=== PATIENT | female | born 1990 | race Caucasian/White ===

== ENCOUNTER 2016-11-22 05:46 | Emergency (ER) | payer OTHER ==
[~2016-11-22] VITALS: Ht 157.5 cm; Wt 78.5 kg
[~2016-11-22 05:46] MED LIST: ADDERALL20 MG; CIPRO 500MG TA500 MG PO; CIPROFLOXACIN500 MG PO; ENDOCET 325 MG-1 TA1 PO; IBU-8800 MG PO; IBUPROFEN600 M1 PO; IBUPROFEN800 M1 PO; LEVSIN-SL0.125 MG SL; MOTRIN800 MG PO; OXYCODONE5 M1 PO; PEPCID20 M1 PO; PERCOCET 325 MG1 TA2 PO; PERCOCET 5-3251 EACH PO; PHENERGAN25 M1 PO; PRILOSEC OTC20 M1 PO; PRILOSEC40 MG PO; PROTONIX40 M3 PO; PYRIDIUM200 MG PO; REGLAN10 M1 PO; REGLAN10 MG PO; TAMIFLU 75MG75 MG PO; TRAMADOL50 MG PO; VIBRAMYCIN100 MG PO; VICODIN 300 MG-1 TAB PO; VICODIN 5-3001 EACH PO; ZOFRAN 4 MG TABL4 MG PO; ZOFRAN 4MG ORALL4 MG PO; ZOFRAN ODT4 M1 PO; ZOFRAN ODT4 M1 SL; ZOFRAN ODT4 MG PO; ZOFRAN4 M1 PO; [UNRECOGNIZED DRUG - REMARK]
--- NOTE | 2016-11-22 06:13 | ED GI/GU/ABDOMINAL COMPLAINT ---
History of Present Illness General Chief Complaint: Nausea, Vomiting, Diarrhea Stated Complaint: ABD PAIN,VOMITING Source: patient Exam Limitations: no limitations Vital Signs & Intake/Output Vital Signs & Intake/Output Vital Signs Date Time Temp Pulse Resp B/P B/P Pulse O2 O2 Flow FiO2 Mean Ox Delivery Rate 11/22 621 Room Air 11/22 617 96.8 101 18 135/79 98 Room Air Allergies Coded Allergies: azithromycin (From ZITHROMAX) (DIARRHEA 05/23/16) Uncoded Allergies: ETOH (Intermediate, VOMITTING, DIARRHEA 05/23/16) Triage Nurses Notes Reviewed? yes ? n Is pt currently ? No Onset: Abrupt Duration: hour(s): Timing: recent history Quality/Severity: burning Location: epigastric Radiation: no radiation Activities at Onset: none Prior Abdominal Problems: similar symptoms Modifying Factors: Worsens With: palpation, vomiting. Associated Symptoms: abdominal pain, nausea/vomiting HPI: 26 yo woman h/o pancreatitis, "but it wasn't from drinking" presents with mid epigastric pain, nausea, and vomiting during the night after drinking 2 shots of tequila at dinner last night. she has no diarrhea, fever, chills, vaginal dishcharge, dysuria. (GERARDO MOULTON,ELIS Streeter) Reconcile Medications Doxycycline Hyclate (Vibramycin) 100 MG CAPSULE 1 CAP PO BID INFN Ibuprofen 800 MG TABLET 1 TAB PO TID PRN PAIN Ibuprofen 600 MG TABLET 1 TAB PO TID PRN PAIN with food Omeprazole 20 MG TABLET. 1 TAB PO DAILY STOMACH UPSET Omeprazole Magnesium (Prilosec Otc) 20 MG TABLET. 1 TAB PO DAILY GASTRITIS Ondansetron (Zofran Odt) 4 MG TAB.RAPDIS 1 TAB PO Q6 PRN NAUSEA Ondansetron (Zofran Odt) 4 MG TAB.RAPDIS 1 TAB SL TID PRN NAUSEA Ondansetron (Zofran Odt) 4 MG TAB.RAPDIS 1 TAB SL TID PRN NAUSEA Oxycodone HCl/Acetaminophen (Percocet 5-325 MG Tablet) 5 MG-325 MG TABLET 1 TAB PO BID BREAKTHROUGH PAIN Oxycodone HCl/Acetaminophen (Percocet 5-325 MG Tablet) 5 MG-325 MG TABLET 1-2 TAB PO Q6P PRN PAIN Pantoprazole Sodium (Protonix) 40 MG TABLET. 1 TAB PO DAILY GERD [UNKNOWN SEIZURE MED] SEIZURES (Reported) (DAVID OCHOA MD) Past History Medical History Any Pertinent Medical History? 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 No (GERARDO MOULTON,ELIS Streeter) Review of Systems Review of Systems Constitutional: Reports: no symptoms. EENTM: Reports: no symptoms. Respiratory: Reports: no symptoms. Cardiovascular: Reports: no symptoms. GI: Reports: no symptoms. Genitourinary: Reports: no symptoms. Musculoskeletal: Reports: no symptoms. Skin: Reports: no symptoms. Neurological/Psychological: Reports: no symptoms. Hematologic/Endocrine: Reports: no symptoms. Immunologic/Allergic: Reports: no symptoms. All Other Systems: Reviewed and Negative (ELIS PHAM MD) Physical Exam Physical Exam General Appearance: well developed/nourished, mild distress Head: atraumatic, normal appearance Eyes: Bilateral: normal appearance. Ears, Nose, Throat, Mouth: hearing grossly normal Neck: normal inspection, supple, full range of motion, normal alignment Respiratory: normal breath sounds, chest non-tender, no respiratory distress, quiet respiration, lungs clear Cardiovascular: regular rate/rhythm Gastrointestinal: normal bowel sounds, soft, mid epigastric tenderness to palpation. no rebound. no guarding. Back: normal inspection Extremities: normal range of motion Neurologic/Psych: no motor/sensory deficits, awake, alert, oriented x 3 Skin: intact, normal color, warm/dry Core Measures ACS in differential dx? No Severe Sepsis Present: No Septic Shock Present: No (ELIS PHAM MD) Progress Differential Diagnosis: pancreatitis vs reflux vs gastroenteritis vs other. Plan of Care: Orders Procedure Date/time Status Add-on Test (ER Only) 11/23 627 Active ETHANOL 11/23 615 Complete LIPASE 11/22 599 Complete HEPATIC FUNCTION PANEL 11/22 599 Complete HUMAN BETA HCG SCREEN 11/22 599 Complete CBC WITHOUT DIFFERENTIAL 11/22 599 Complete BASIC METABOLIC PANEL 11/22 599 Complete AMYLASE 05/06 0600 Complete Laboratory Tests 11/22/16 0616: Anion Gap 14, Estimated GFR > 60, BUN/Creatinine Ratio 8.8, Glucose 129 H, Calcium 9.0, Total Bilirubin 0.4, Direct Bilirubin 0.3, AST 35, ALT 63 H, Alkaline Phosphatase 95, Total Protein 7.7, Albumin 4.7, Amylase 105, Lipase 171 , Total Beta HCG NEGATIVE, CBC w Diff NO MAN DIFF REQ, RBC 4.97, MCV 89.7, MCH 30.2, RDW 13.5, MPV 8.2, Gran % 63.0, Lymphocytes % 31.6, Monocytes % 4.6, Eosinophils % 0.5, Basophils % 0.3, Absolute Granulocytes 6.1, Absolute Lymphocytes 3.0, Absolute Monocytes 0.4, Absolute Eosinophils 0, Absolute Basophils 0, PUBS MCHC 33.7, Serum Alcohol 63.0 11/22/16 0600: Urine Color Cancelled, Urine Clarity Cancelled, Urine pH Cancelled, Ur Specific [place] Cancelled, Urine Protein Cancelled, Urine Ketones Cancelled, Urine Nitrite Cancelled, Urine Bilirubin Cancelled, Urine Urobilinogen Cancelled, Ur Leukocyte Esterase Cancelled, Ur Microscopic Cancelled, Urine Hemoglobin Cancelled, Urine Glucose Cancelled Initial ED EKG: none Hand-Off Endorsed To: DAVID OCHOA MD Endorsed Time: 0700 Pending: labs (GERARDO MOULTON,ELIS Streeter) Comments: Discharged by Dr. Pham (DAVID OCHOA MD) Departure Departure Condition: Stable Clinical Impression Primary Impression: Abdominal pain Referrals: DEVENDRA ROBBINS APRN (PCP/Family) Departure Forms: Customer Survey General Discharge Information (GERARDO MOULTON,ELIS Streeter) Departure Disposition: HOME OR SELF CARE Prescriptions: Current Visit Scripts Ondansetron (Zofran Odt) 1 TAB SL TID PRN NAUSEA #10 TAB Omeprazole 1 TAB PO DAILY #30 TAB (DAVID OCHOA MD)
[2016-11-22 06:18] VITALS: BP 135/79
[2016-11-22 06:35] LABS: ABSOLUTE BASOPHIL COUNT 0 /CUMM (0.0-0.2); ABSOLUTE EOSINOPHIL COUNT 0 /CUMM (0.0-0.7); ABSOLUTE GRANULOCYTE CT 6.1 /CUMM (1.4-6.5); ABSOLUTE MONOCYTE COUNT 0.4 /CUMM (0.10-0.60); BASOPHIL % 0.3 % (0.0-2.0); EOSINOPHIL % 0.5 % (0-5); HEMATOCRIT 44.6 % (37-47); MEAN CORPUSCULAR HGB 30.2 PG (27.0-31.0); MEAN CORPUSCULAR HGB CONC 33.7 G/DL (33.0-37.0); MEAN CORPUSCULAR VOLUME 89.7 FL (81.0-99.0); MEAN PLATELET VOLUME 8.2 FL (7.4-10.4); PLATELET COUNT 309 /CUMM (130-400); RBC DISTRIBUTION WIDTH 13.5 % (11.5-14.5); RED BLOOD CELL CT 4.97 /CUMM (4.20-5.40); WHITE BLOOD CELL COUNT 9.6 /CUMM (4.8-10.8)
[2016-11-22] MEDS ORDERED: OMEPRAZOLE20 M3 PO (07:28)
[2016-11-22] MEDS ORDERED: ZOFRAN ODT4 M1 SL (07:28)
[2016-11-22] MEDS ORDERED: ONFI2.5 MG/1 M PO (17:57)
[2016-11-22] MEDS ORDERED: DIFLUCAN150 M1 (17:58)
[2016-11-22] MEDS ORDERED: IBUPROFEN800 M1 (17:59)
[2016-11-22] MEDS ORDERED: CARAFATE1 GM/10 M1 PO (20:33)
[2016-11-22] MEDS ORDERED: REGLAN10 M1 PO (20:33)
[2016-11-23] MEDS ORDERED: PYRIDIUM200 M1 PO (13:36)
[2016-11-23] MEDS ORDERED: BENTYL10 M1 PO (13:36)
[2016-11-23] MEDS ORDERED: OMEPRAZOLE20 M2 PO (13:36)
== END 2016-11-22 07:55 ==
LOC: ERH 05:46
PROVIDERS: Pediatrics
DX: R10.13 Epigastric pain (principal)
CPT/HCPCS: 74177; 81001; 81025; 96361; 96374; 96375; G0480; J2405; J2550

== ENCOUNTER 2016-11-22 15:00 | Emergency (ER) | payer OTHER ==
[~2016-11-22] VITALS: Ht 167.6 cm; Wt 80.7 kg
[~2016-11-22 15:00] MED LIST changes: +OMEPRAZOLE20 M3 PO
[2016-11-22 16:44] LABS: ABSOLUTE BASOPHIL COUNT 0 /CUMM (0.0-0.2); ABSOLUTE EOSINOPHIL COUNT 0 /CUMM (0.0-0.7); ABSOLUTE MONOCYTE COUNT 0.2 /CUMM (0.10-0.60); BASOPHIL % 0 % (0.0-2.0); EOSINOPHIL % 0 % (0-5); HEMATOCRIT 41.4 % (37-47); MEAN CORPUSCULAR HGB 30.2 PG (27.0-31.0); MEAN CORPUSCULAR HGB CONC 33.5 G/DL (33.0-37.0); MEAN CORPUSCULAR VOLUME 90.1 FL (81.0-99.0); RBC DISTRIBUTION WIDTH 13.5 % (11.5-14.5); RED BLOOD CELL CT 4.59 /CUMM (4.20-5.40)
[2016-11-22 16:56] LABS: ABSOLUTE GRANULOCYTE CT 14.2 /CUMM (1.4-6.5); ABSOLUTE LYMPH COUNT 1.1 /CUMM (1.2-3.4); MEAN PLATELET VOLUME 8.5 FL (7.4-10.4); PLATELET COUNT 292 /CUMM (130-400)
[2016-11-22 16:59] LABS: WHITE BLOOD CELL COUNT 15.5 /CUMM (4.8-10.8)
[2016-11-22 17:30] LABS: GRANULOCYTE % 91.5 % (42.2-75.2)
[2016-11-22] MEDS ORDERED: ONFI2.5 MG/1 M PO (17:57)
[2016-11-22] MEDS ORDERED: DIFLUCAN150 M1 (17:58)
--- NOTE | 2016-11-22 17:58 | ED GI/GU/ABDOMINAL COMPLAINT ---
History of Present Illness General Chief Complaint: Abdominal Pain/Flank Pain Stated Complaint: SEEN HERE THIS AM ABD PAIN Source: patient, old records Exam Limitations: no limitations Vital Signs & Intake/Output Vital Signs & Intake/Output Vital Signs Date Time Temp Pulse Resp B/P B/P Pulse O2 O2 Flow FiO2 Mean Ox Delivery Rate 11/22 2029 97.7 68 20 111/51 100 11/22 1824 Room Air Room Air 11/22 1608 98.0 73 14 139/85 100 Room Air Allergies Coded Allergies: azithromycin (From ZITHROMAX) (DIARRHEA 05/23/16) Uncoded Allergies: ETOH (Intermediate, VOMITTING, DIARRHEA 05/23/16) Reconcile Medications Clobazam (ONFI) 2.5 MG/ML ORAL.SUSP 2.5 ML PO Q12H EPILEPSY (Reported) Fluconazole (Diflucan) (Unknown Strength) TABLET (Unknown Dose) UNKNOWN ( Reported) Ibuprofen (Unknown Strength) TABLET (Unknown Dose) UNKNOWN (Reported) Metoclopramide HCl (Reglan) 10 MG TABLET 1 TAB PO Q6 PRN nausea Omeprazole Magnesium (Prilosec Otc) 20 MG TABLET.DR 1 TAB PO DAILY GASTRITIS Ondansetron (Zofran Odt) 4 MG TAB.RAPDIS 1 TAB SL TID PRN NAUSEA Sucralfate (Carafate) 1 GRAM/10 ML ORAL.SUSP 10 ML PO Q6 PRN upper abdominal pain Triage Note: PT TO ED FOR NAUSEA AND VOMITING, PT SEEN HERE IN ED FOR SAME THIS AM, PT STATING "I'M TOO SICK TO TAKE THE MEDS THEY GAVE ME". Triage Nurses Notes Reviewed? yes ? n Is pt currently ? No HPI: Patient is a 26-year-old female with past medical history of pancreatitis and cholelithiasis presents complaining of abdominal pain, nausea, vomiting. Patient had a shot of tequila yesterday evening and began with pain almost immediately. Pain radiates through to the patient's back. Patient was seen in the emergency department early this morning, had blood work, pain medication, antinausea medicine and was discharged home. Patient reports that she has been vomiting throughout the day, has not been able to tolerate oral intake. Symptoms are currently moderate to severe worsens with palpation. Patient denies fevers. (TARYN TAVERAS,KIARA) Past History Travel History Traveled to [place] past 21 day No Medical History Any Pertinent Medical History? 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 No (KIARA GREEN) Review of Systems Review of Systems Constitutional: Denies: chills, fever. EENTM: Reports: no symptoms. Respiratory: Denies: cough, short of breath. Cardiovascular: Denies: chest pain. GI: Reports: see HPI. Genitourinary: Reports: no symptoms. Musculoskeletal: Reports: back pain. Skin: Reports: no symptoms. Neurological/Psychological: Reports: no symptoms. Hematologic/Endocrine: Reports: no symptoms. Immunologic/Allergic: Reports: no symptoms. (KIARA GREEN) Physical Exam Physical Exam General Appearance: well developed/nourished, alert, awake Head: atraumatic, normal appearance Eyes: Bilateral: normal appearance, PERRL, EOMI. Ears, Nose, Throat, Mouth: hearing grossly normal Neck: normal inspection, supple, full range of motion Respiratory: normal breath sounds, chest non-tender, no respiratory distress, lungs clear Cardiovascular: regular rate/rhythm Gastrointestinal: normal bowel sounds, soft, epigastric and mild right upper quadrant tenderness. Mild right lower quadrant tenderness Back: normal inspection, normal range of motion, no vertebral tenderness, no CVA tenderness Extremities: normal range of motion Neurologic/Psych: no motor/sensory deficits, awake, alert, oriented x 3, normal gait, normal mood/affect Skin: intact, normal color, warm/dry Core Measures ACS in differential dx? No Severe Sepsis Present: No Septic Shock Present: No (KIARA GREEN) Progress Differential Diagnosis: AAA, appendicitis, biliary colic, cholecystitis, diverticulitis, hepatitis, hernia, ischemic bowel, kidney stone, ovarian cyst, ovarian torsion, pancreatitis, PID/cervicitis, UTI/pyelo Plan of Care: Orders Procedure Date/time Status URINE 11/22 161 Complete URINALYSIS 11/22 1610 Complete LIPASE 11/22 161 Complete COMPREHENSIVE METABOLIC PANEL 11/22 1610 Complete CBC WITHOUT DIFFERENTIAL 11/22 1610 Complete Laboratory Tests 11/22/16 1630: Anion Gap 17 H, Estimated GFR > 60, BUN/Creatinine Ratio 10.0, Glucose 115 H, Calcium 9.1, Total Bilirubin 0.4, AST 29, ALT 58 H, Alkaline Phosphatase 91, Total Protein 7.6, Albumin 4.7, Globulin 2.9, Albumin/Globulin Ratio 1.6, Lipase 54, CBC w Diff NO MAN DIFF REQ, RBC 4.59, MCV 90.1, MCH 30.2, RDW 13.5, MPV 8.5, Gran % 91.5 H, Lymphocytes % 7.1 L, Monocytes % 1.4 L, Eosinophils % 0, Basophils % 0 L, Absolute Granulocytes 14.2 H, Absolute Lymphocytes 1.1 L, Absolute Monocytes 0.2, Absolute Eosinophils 0, Absolute Basophils 0, PUBS MCHC 33.5 11/22/16 1616: Urine Color YEL, Urine Clarity CLEAR, Urine pH 6.5, Ur Specific [place] 1.025, Urine Protein 30 H, Urine Ketones TRACE H, Urine Nitrite NEG, Urine Bilirubin NEG, Urine Urobilinogen 0.2, Ur Leukocyte Esterase NEG, Ur Microscopic SEDIMENT EXAMINED, Urine RBC 1-3, Urine WBC 1-3 H, Ur Epithelial Cells MANY H, Urine Bacteria MANY H, Urine Mucus MANY H, Urine Hemoglobin NEG, Urine Glucose NEG, Urine Test NEGATIVE Patient reevaluated multiple times. Patient reports significant improvement after Dilaudid, Zofran, Pepcid. Results of labs and CT scan discussed with patient. Patient tolerating water appropriately. Appears stable for discharge. Patient reports that she has an appointment with gastroenterology this upcoming week. Discussed with Dr. Garcia. (TARYN TAVERAS,KIARA) Diagnostic Imaging: Viewed by Me: CT Scan. Discussed w/RAD: CT Scan. Radiology Impression: PATIENT: MATTIE ROQUE I PRESENT AGE: 26 PATIENT ACCOUNT NO: [id number] : 89 LOCATION: [facility] ORDERING PHYSICIAN: KIARA TAVERAS SERVICE DATE: 11/22/16 EXAM TYPE: CAT - CT ABD & PELVIS W IV CONTRAST EXAMINATION: CT ABDOMEN AND PELVIS WITH CONTRAST CLINICAL INFORMATION: Abdominal pain COMPARISON: 07/15/2016 CT scan abdomen pelvis TECHNIQUE: Multidetector volumetric imaging was performed of the abdomen and pelvis before and after the IV administration of 94 mL of Optiray 320 intravenous contrast. Sagittal and coronal reformatted images were obtained on the technologist's workstation. DLP: 392.17 mGy-cm FINDINGS: LUNG BASES: The visualized lung bases are unremarkable. LIVER, GALLBLADDER, AND BILIARY TREE: The liver is normal in size, shape, and attenuation. No focal hepatic lesion or biliary ductal dilatation is present. The gallbladder is unremarkable with no evidence of radiopaque gallstones, gallbladder wall thickening, or obvious pericholecystic inflammatory changes. PANCREAS: Unremarkable. SPLEEN: Unremarkable. ADRENAL GLANDS: Unremarkable. KIDNEYS AND URETERS: The kidneys are normal in size, shape, and attenuation. No hydronephrosis, hydroureter, or calculi seen. No perinephric stranding. There is a subcentimeter right renal cortical hypodensity, located in the medial lower pole. It is too small to characterize and statistically represents a renal cortical cysts. BLADDER: Unremarkable. GASTROINTESTINAL TRACT: The stomach, duodenum, small and large bowel are unremarkable. The appendix is unremarkable. ABDOMINAL WALL: No significant hernia is appreciated. LYMPH NODES: Normal. VASCULAR: Unremarkable. PELVIC VISCERA: The uterus and adnexa are unremarkable. OSSEOUS STRUCTURES: Unremarkable. IMPRESSION: No acute intra-abdominal findings. No hydronephrosis, sign of acute appendicitis or CT sign of acute cholecystitis. DICTATED BY: CHARLINE WANG MD DATE/TIME DICTATED:11/22/161953 BRUSHER HAND:DANA DATE/TIME TRANSCRIBED:11/22/161953 CONFIDENTIAL, DO NOT COPY WITHOUT APPROPRIATE AUTHORIZATION. <Electronically signed in Other Vendor System> SIGNED BY: CHARLINE WANG MD 11/22/162002 Initial ED EKG: none (KIARA GREEN) Departure Departure Time of Disposition: 2029 Disposition: HOME OR SELF CARE Condition: Stable Clinical Impression Primary Impression: Abdominal pain Qualifiers: Abdominal location: upper abdomen, unspecified Qualified Code: R10.10 - Upper abdominal pain, unspecified Referrals: DEVENDRA ROBBINS APRN (PCP/Family) ALBARO DUPONT MD Additional Instructions: Follow up with the [facility] next week for further evalaution. Also follow up with Dr. Dupont next week as scheduled. Clear liquid diet for the next 12 hours then slowly advance your diet as tolerated. Return to the ER if fevers, unable to stay hydrate, or worsening of symptoms. Departure Forms: Customer Survey General Discharge Information Prescriptions: Current Visit Scripts Sucralfate (Carafate) 10 ML PO Q6 PRN upper abdominal pain #120 ML Metoclopramide HCl (Reglan) 1 TAB PO Q6 PRN nausea #12 TAB (KIARA GREEN) PA/ANIMAL HUSBANDMAN Co-Sign Statement Statement: ED Attending supervision documentation- [] I saw and evaluated the patient. I have also reviewed all the pertinent lab results and diagnostic results. I agree with the findings and the plan of care as documented in the PA's/ANIMAL HUSBANDMAN's documentation. [X] I have reviewed the ED Record and agree with the PA's/ANIMAL HUSBANDMAN's documentation. [] Additions or exceptions (if any) to the PAs/ANIMAL HUSBANDMAN's note and plan are summarized below: [] (DANI MOULTON,IMANI)
[2016-11-22] MEDS ORDERED: IBUPROFEN800 M1 (17:59)
--- NOTE | 2016-11-22 20:03 | CT SCAN REPORT ---
EXAMINATION: CT ABDOMEN AND PELVIS WITH CONTRAST CLINICAL INFORMATION: Abdominal pain COMPARISON: 07/15/2016 CT scan abdomen pelvis TECHNIQUE: Multidetector volumetric imaging was performed of the abdomen and pelvis before and after the IV administration of 94 mL of Optiray 320 intravenous contrast. Sagittal and coronal reformatted images were obtained on the technologist's workstation. DLP: 392.17 mGy-cm FINDINGS: LUNG BASES: The visualized lung bases are unremarkable. LIVER, GALLBLADDER, AND BILIARY TREE: The liver is normal in size, shape, and attenuation. No focal hepatic lesion or biliary ductal dilatation is present. The gallbladder is unremarkable with no evidence of radiopaque gallstones, gallbladder wall thickening, or obvious pericholecystic inflammatory changes. PANCREAS: Unremarkable. SPLEEN: Unremarkable. ADRENAL GLANDS: Unremarkable. KIDNEYS AND URETERS: The kidneys are normal in size, shape, and attenuation. No hydronephrosis, hydroureter, or calculi seen. No perinephric stranding. There is a subcentimeter right renal cortical hypodensity, located in the medial lower pole. It is too small to characterize and statistically represents a renal cortical cysts. BLADDER: Unremarkable. GASTROINTESTINAL TRACT: The stomach, duodenum, small and large bowel are unremarkable. The appendix is unremarkable. ABDOMINAL WALL: No significant hernia is appreciated. LYMPH NODES: Normal. VASCULAR: Unremarkable. PELVIC VISCERA: The uterus and adnexa are unremarkable. OSSEOUS STRUCTURES: Unremarkable. IMPRESSION: No acute intra-abdominal findings. No hydronephrosis, sign of acute appendicitis or CT sign of acute cholecystitis.
[2016-11-22 20:30] VITALS: BP 111/51
[2016-11-22] MEDS ORDERED: REGLAN10 M1 PO (20:33)
[2016-11-22] MEDS ORDERED: CARAFATE1 GM/10 M1 PO (20:33)
[2016-11-23] MEDS ORDERED: BENTYL10 M1 PO (13:36)
[2016-11-23] MEDS ORDERED: OMEPRAZOLE20 M2 PO (13:36)
[2016-11-23] MEDS ORDERED: PYRIDIUM200 M1 PO (13:36)
== END 2016-11-22 20:36 ==
LOC: ERH 15:00
PROVIDERS: Emergency Medicine
DX: R10.9 Unspecified abdominal pain (principal)
CPT/HCPCS: 74177; 81001; 81025; 96374; 96375; J2405

== ENCOUNTER 2016-11-23 09:38 | Emergency (ER) | payer OTHER ==
[~2016-11-23] VITALS: Ht 157.5 cm; Wt 77.1 kg
[~2016-11-23 09:38] MED LIST changes: +CARAFATE1 GM/10 M1 PO; +DIFLUCAN150 M1; +IBUPROFEN800 M1; +ONFI2.5 MG/1 M PO
--- NOTE | 2016-11-23 11:44 | ED GI/GU/ABDOMINAL COMPLAINT ---
History of Present Illness General Chief Complaint: Abdominal Pain/Flank Pain Stated Complaint: ABD PAIN, SEEN HERE YESTERDAY FOR SAME Source: patient Exam Limitations: no limitations Allergies Coded Allergies: azithromycin (From ZITHROMAX) (DIARRHEA 05/23/16) Uncoded Allergies: ETOH (Intermediate, VOMITTING, DIARRHEA 05/23/16) Triage Note: TRIAGE: 26 Y/O FEMALE SEEN TWICE YESTERDAY IN DEPARTMENT FOR SAME COMPLAINT OF UPPER ABDOMINAL PAIN. "IT JUST KEEPS GETTING WORSE. THIS IS EXACTLY HOW IT WAS LAST TIME AND THEN THEY ADMITTED ME [facility] FOR A WEEK AND HALF." C/O PAIN 04/28 UPPER ABDOMEN AND LEFT FLANK. Triage Nurses Notes Reviewed? yes ? N Is pt currently ? No HPI: THIS PATIENT is a 26-year-old female who presented to the emergency department today for evaluation of multiple complaints. This patient was seen here in the emergency department twice yesterday. At that time she had a full set of lab work completed, medication and fluids administered, a CT of the abdomen and pelvis with IV contrast completed, all with unremarkable findings. The patient reported that on Thursday she was celebrating [facility] and had, "a couple shots of alcohol." She reported that after that time she started to develop epigastric pain and vomiting. She reported the vomitus was, "maroon." She reported that she has had pancreatitis before, but she does not believe the symptoms are from alcohol intake on Thursday night. She reported that she is also having left flank pain and reports that she has not urinated since yesterday. The patient is reporting mild chest pain associated with certain movements which is nonradiating and intermittent. She reported associated nausea. The abdominal pain is nonradiating and constant. It gets up to an 8 out of 10 and is sharp. She denied any urinary burning, urgency, frequency, or blood in the urine. She denied any fevers or chills. No difficulty breathing. (BRUCE KHOURY,SHAYAN) Vital Signs & Intake/Output Vital Signs & Intake/Output Vital Signs Date Time Temp Pulse Resp B/P B/P Pulse O2 O2 Flow FiO2 Mean Ox Delivery Rate 11/23 1336 96.5 65 18 122/71 98 Room Air ED Intake and Output 11/24 0000 11/23 1200 Intake Total 1000 Output Total Balance 1000 Intake, IV 1000 Patient 170 lb Weight Weight Reported by Patient Measurement Method Reconcile Medications Clobazam (ONFI) 2.5 MG/ML ORAL.SUSP 2.5 ML PO Q12H EPILEPSY (Reported) Dicyclomine Hydrochloride (Bentyl) 10 MG CAPSULE 1 CAP PO TID PRN abdominal spasms Fluconazole (Diflucan) (Unknown Strength) TABLET (Unknown Dose) UNKNOWN ( Reported) Ibuprofen (Unknown Strength) TABLET (Unknown Dose) UNKNOWN (Reported) Metoclopramide HCl (Reglan) 10 MG TABLET 1 TAB PO Q6 PRN nausea Omeprazole 20 MG CAPSULE.DR 1 CAP PO DAILY gastritis Omeprazole Magnesium (Prilosec Otc) 20 MG TABLET.DR 1 TAB PO DAILY GASTRITIS Ondansetron (Zofran Odt) 4 MG TAB.RAPDIS 1 TAB SL TID PRN NAUSEA Phenazopyridine HCl (Pyridium) 200 MG TABLET 1 TAB PO TID PRN dysuria Sucralfate (Carafate) 1 GRAM/10 ML ORAL.SUSP 10 ML PO Q6 PRN upper abdominal pain (DON MOULTON,DAVID) Past History Travel History Traveled to [place] past 21 day No Medical History Any Pertinent Medical History? 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 No (SHAYAN BARRERA PA-C) Review of Systems Review of Systems Constitutional: Reports: no symptoms. EENTM: Reports: no symptoms. Respiratory: Reports: no symptoms. Cardiovascular: Reports: no symptoms. GI: Reports: see HPI. Genitourinary: Reports: see HPI. Musculoskeletal: Reports: see HPI. Skin: Reports: no symptoms. Neurological/Psychological: Reports: no symptoms. All Other Systems: Reviewed and Negative (SHAYAN BARRERA PA-C) Physical Exam Physical Exam Gastrointestinal: normal bowel sounds, soft, no organomegaly, HYPOACTIVE BOWEL SOUNDS. tENDERNESS TO PALPATION IN THE EPIGASTRIC REGION WITH NO REBOUND OR GUARDING. nO mCbURNEY'S POINT TENDERNESS. nEGATIVE Richardson SIGN. nEGATIVE rOVSING SIGN. nEGATIVE PSOAS SIGN. nO MASSES OR HERNIAS APPRECIATED Comments: Well-developed well-nourished person in no acute distress HEENT: Normal EENT exam, head normocephalic, moist mucous membranes Pupils equally round and reactive to light. Neck: Supple, no lymphadenopathy Back: Normal gait. No midline tenderness. Left-sided CVA tenderness Cardiovascular: Regular rate and rhythm with no murmurs, rubs, or gallops Respiratory: Chest nontender. No respiratory distress. Breath sounds clear to auscultation bilaterally with no wheezes, rales, rhonchi Extremity: Normal equal pulses Neuro: Alert oriented x3, cranial nerves II through XII grossly intact. Skin: No appreciable rash on exposed skin, skin is warm and dry. Psych: Mood and affect is normal Core Measures ACS in differential dx? No Severe Sepsis Present: No Septic Shock Present: No (BRUCE KHOURY,SHAYAN) Progress Differential Diagnosis: AAA, AMI, appendicitis, biliary colic, bowel obstruction , colon cancer, cholecystitis, diverticulitis, ectopic , endometritis, gastritis, hernia, ischemic bowel, inflamm bowel dis, intrauterine , kidney stone, Gladys-Jose M tear, ovarian cyst, ovarian torsion, pancreatitis, PID/cervicitis, PUD/GERD, perforated viscous, threatened AB, UTI/pyelo, GASTROENTERITIS Plan of Care: Orders Procedure Date/time Status CULTURE,URINE 11/23 1134 Active CULTURE,STOOL 11/23 1134 Active C.DIFFICILE 11/23 113 Active URINALYSIS 11/23 1134 Complete TROPONIN LEVEL 11/23 1134 Complete COMPREHENSIVE METABOLIC PANEL 11/23 1134 Complete CBC WITHOUT DIFFERENTIAL 11/23 1134 Complete EKG 11/23 1134 Active Laboratory Tests 11/23/16 1152: Anion Gap 13, Estimated GFR > 60, BUN/Creatinine Ratio 10.0, Glucose 103 H, Calcium 9.2, Total Bilirubin 0.6, AST 25, ALT 59 H, Alkaline Phosphatase 84, Troponin I < 0.01, Total Protein 6.9, Albumin 4.2, Globulin 2.7, Albumin/ Globulin Ratio 1.6, CBC w Diff NO MAN DIFF REQ, RBC 4.23, MCV 89.4, MCH 30.2, RDW 13.9, MPV 7.9, Gran % 77.5 H, Lymphocytes % 18.8 L, Monocytes % 3.2, Eosinophils % 0.1, Basophils % 0.4, Absolute Granulocytes 10.8 H, Absolute Lymphocytes 2.6, Absolute Monocytes 0.4, Absolute Eosinophils 0, Absolute Basophils 0.1, PUBS MCHC 33.8, Urinalysis MOD H, Urine Color YEL, Urine Clarity HAZY H, Urine pH 6.0, Ur Specific [place] >= 1.030, Urine Protein NEG, Urine Ketones NEG, Urine Nitrite NEG, Urine Bilirubin NEG, Urine Urobilinogen 0.2, Ur Leukocyte Esterase NEG, Ur Microscopic SEDIMENT EXAMINED, Urine RBC RARE, Ur Epithelial Cells MANY H, Urine Crystals 3+ [place] H, Urine Bacteria MOD H, Urine Mucus FEW, Urine Hemoglobin NEG, Urine Glucose NEG Microbiology 11/23 1152 URINE ROUT: Urine Culture - RECD 11/23 1134 STOOL: Clostridium difficile Toxin A & B - ORD 11/23 1134 STOOL: Stool Culture - ORD Initial ED EKG: normal axis, normal intervals, normal sinus rhythm, no ST T wave changes, 53 BPM, SINUS BRADYCARDIA Comments: 11/23/2016 1:34:05 PM: The patient reported improvement of pain with IV Dilaudid. CT scan deferred at this time due to having had a CT scan with IV contrast performed yesterday. This CT scan was unremarkable with no evidence of hydronephrosis, ureterolithiasis, appendicitis, or any other acute intra- abdominal process. The patient's white blood cell count is improving from yesterday at 13.9. No evidence of urinary tract infection. This patient is afebrile with all vital signs stable. Discussed this patient the importance of following up with the GI specialist who she has an appointment with this week. (BRCUE KHOURY,SHAYAN) Departure Departure Disposition: HOME OR SELF CARE Condition: Stable Clinical Impression Primary Impression: Abdominal pain Qualifiers: Abdominal location: epigastric Qualified Code: R10.13 - Epigastric pain Referrals: DEVENDRA ROBBINS APRN (PCP/Family) Additional Instructions: Please be sure to attend your previously scheduled appointment with the tumbler machine operator as discussed. Rest and stay hydrated. Take medication for pain and abdominal spasms as prescribed. Return for any worsening symptoms or concerns. Departure Forms: Customer Survey General Discharge Information Prescriptions: Current Visit Scripts Omeprazole 1 CAP PO DAILY #7 CAP Dicyclomine Hydrochloride (Bentyl) 1 CAP PO TID PRN abdominal spasms #12 CAP Phenazopyridine HCl (Pyridium) 1 TAB PO TID PRN dysuria #9 TAB (SHAYAN BARRERA PA-C) PA/R PROGRAMMER Co-Sign Statement Statement: ED Attending supervision documentation- I saw and evaluated the patient. I have also reviewed all the pertinent lab results and diagnostic results. I agree with the findings and the plan of care as documented in the PA's/R PROGRAMMER's documentation. x I have reviewed the ED Record and agree with the PA's/R PROGRAMMER's documentation. [] Additions or exceptions (if any) to the PAs/R PROGRAMMER's note and plan are summarized below: [] (DON MOULTON,DAVID)
[2016-11-23 12:05] LABS: ABSOLUTE BASOPHIL COUNT 0.1 /CUMM (0.0-0.2); ABSOLUTE EOSINOPHIL COUNT 0 /CUMM (0.0-0.7); ABSOLUTE GRANULOCYTE CT 10.8 /CUMM (1.4-6.5); ABSOLUTE LYMPH COUNT 2.6 /CUMM (1.2-3.4); ABSOLUTE MONOCYTE COUNT 0.4 /CUMM (0.10-0.60); BASOPHIL % 0.4 % (0.0-2.0); EOSINOPHIL % 0.1 % (0-5); GRANULOCYTE % 77.5 % (42.2-75.2); HEMATOCRIT 37.8 % (37-47); MEAN CORPUSCULAR HGB 30.2 PG (27.0-31.0); MEAN CORPUSCULAR HGB CONC 33.8 G/DL (33.0-37.0); MEAN CORPUSCULAR VOLUME 89.4 FL (81.0-99.0); MEAN PLATELET VOLUME 7.9 FL (7.4-10.4); PLATELET COUNT 255 /CUMM (130-400); RBC DISTRIBUTION WIDTH 13.9 % (11.5-14.5); RED BLOOD CELL CT 4.23 /CUMM (4.20-5.40); WHITE BLOOD CELL COUNT 13.9 /CUMM (4.8-10.8)
[2016-11-23 13:36] VITALS: BP 122/71
[2016-11-23] MEDS ORDERED: PYRIDIUM200 M1 PO (13:36)
[2016-11-23] MEDS ORDERED: OMEPRAZOLE20 M2 PO (13:36)
[2016-11-23] MEDS ORDERED: BENTYL10 M1 PO (13:36)
== END 2016-11-23 13:42 ==
LOC: ERH 09:38
PROVIDERS: Physician Assistant
DX: R10.13 Epigastric pain (principal)
CPT/HCPCS: 81001; 87045; 87086; 93005; 93010; 96361; 96374; 96375; J2405

== ENCOUNTER 2016-12-15 11:04 | Emergency (ER) | payer OTHER ==
[~2016-12-15] VITALS: Ht 157.5 cm; Wt 80.3 kg
[~2016-12-15 11:04] MED LIST changes: +BENTYL10 M1 PO; +OMEPRAZOLE20 M2 PO; +PYRIDIUM200 M1 PO
--- NOTE | 2016-12-15 11:48 | ED GI/GU/ABDOMINAL COMPLAINT ---
History of Present Illness General Chief Complaint: Abdominal Pain/Flank Pain Stated Complaint: ABD PAIN Source: patient Exam Limitations: no limitations Vital Signs & Intake/Output Vital Signs & Intake/Output Vital Signs Date Time Temp Pulse Resp B/P B/P Pulse O2 O2 Flow FiO2 Mean Ox Delivery Rate 12/15 1514 96.2 78 18 96/50 98 12/15 1140 97 Room Air Room Air 12/15 1107 96.6 98 18 112/80 98 Room Air Allergies Coded Allergies: azithromycin (From ZITHROMAX) (DIARRHEA 05/23/16) Uncoded Allergies: ETOH (Intermediate, VOMITTING, DIARRHEA 05/23/16) Reconcile Medications Clobazam (ONFI) 2.5 MG/ML ORAL.SUSP 2.5 ML PO Q12H EPILEPSY (Reported) Dicyclomine Hydrochloride (Bentyl) 10 MG CAPSULE 1 CAP PO TID PRN abdominal spasms Fluconazole (Diflucan) (Unknown Strength) TABLET (Unknown Dose) UNKNOWN ( Reported) Ibuprofen (Unknown Strength) TABLET (Unknown Dose) UNKNOWN (Reported) Metoclopramide HCl (Reglan) 10 MG TABLET 1 TAB PO Q6 PRN nausea Omeprazole 20 MG CAPSULE.DR 1 CAP PO DAILY gastritis Omeprazole Magnesium (Prilosec Otc) 20 MG TABLET.DR 1 TAB PO DAILY GASTRITIS Ondansetron (Zofran Odt) 4 MG TAB.RAPDIS 1 TAB SL TID PRN NAUSEA Phenazopyridine HCl (Pyridium) 200 MG TABLET 1 TAB PO TID PRN dysuria Sucralfate (Carafate) 1 GRAM/10 ML ORAL.SUSP 10 ML PO Q6 PRN upper abdominal pain Triage Note: 26 YO MALE TO TRIAGE C/O ABD PAIN AND VOMITING. STATES HX OF GASTRITIS. Triage Nurses Notes Reviewed? yes ? n Is pt currently ? No HPI: Patient presents for evaluation of severe epigastric abdominal pain and vomiting that began this morning. Patient states she had some mild reflux pain yesterday which is not unusual for her. Today she had a sudden onset of pain vomiting and diarrhea (2 times per day with no associated bleeding). The pain is a sharp stabbing pain "like a ball stuck". It has been intermittent lasting about 5 minutes at a time and occurring about every 15 minutes. She tried Tylenol and Motrin and Reglan without relief. She states she's had episodes like this in the past typically triggered by fluids. She hasn't seen her GI specialist for a while due to scheduling conflicts. Nothing seems to be making her pain vomiting and diarrhea better. Symptoms continued here in the emergency department. Past History Travel History Traveled to [place] past 21 day No Medical History Any Pertinent Medical History? see below for history Neurological: seizure EENT: NONE Cardiovascular: NONE Respiratory: NONE Gastrointestinal: pancreatitis Hepatic: NONE Renal: nephrolithiasis Musculoskeletal: NONE Psychiatric: NONE Endocrine: NONE, . 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 No Review of Systems Review of Systems Constitutional: Reports: no symptoms. EENTM: Reports: no symptoms. Respiratory: Reports: no symptoms. Cardiovascular: Reports: no symptoms. GI: Reports: see HPI. Genitourinary: Reports: no symptoms. Musculoskeletal: Reports: no symptoms. Skin: Reports: no symptoms. Neurological/Psychological: Reports: no symptoms. Hematologic/Endocrine: Reports: no symptoms. Immunologic/Allergic: Reports: no symptoms. All Other Systems: Reviewed and Negative Physical Exam Physical Exam Gastrointestinal: SEE BELOW Comments: Gen.: Well-nourished, well-developed, no acute respiratory distress. Acutely distressed secondary to nausea and vomiting and pain. Head: Normocephalic, atraumatic. Eyes: Normal inspection bilaterally Ears: Normal inspection bilaterally Nose: Normal inspection Throat/mouth : Moist mucosa Neck: Supple, full range of motion, no goiter Heart: Regular rate and rhythm, no murmurs rubs or gallops Lungs: Clear to auscultation bilaterally with normal air entry Chest: Nontender Back: Normal range of motion Abdomen: Soft, epigastric tenderness with brief voluntary guarding but no rebound, nondistended, decreased bowel sounds Extremities: Normal range of motion grossly, equal radial pulses, no cyanosis clubbing or edema Neurologic: Cranial nerves grossly intact, speech is clear Skin: warm and dry Psychiatric: Calm, cooperative, no apparent delusions or hallucinations Core Measures ACS in differential dx? No Severe Sepsis Present: No Septic Shock Present: No Progress Differential Diagnosis: gastritis, hepatitis, inflamm bowel dis, kidney stone, pancreatitis, PUD/GERD, perforated viscous, SBO, UTI/pyelo Plan of Care: Orders Procedure Date/time Status URINALYSIS 12/15 114 Complete LIPASE 12/15 1148 Complete HUMAN BETA HCG SCREEN 12/15 114 Complete COMPREHENSIVE METABOLIC PANEL 12/15 114 Complete CBC WITHOUT DIFFERENTIAL 12/16 1147 Complete Laboratory Tests 12/15/16 1411: Urinalysis HEAVY H, Urine Color YEL, Urine Clarity HAZY H, Urine pH 6.0, Ur Specific [place] >= 1.030, Urine Protein TRACE H, Urine Ketones NEG, Urine Nitrite NEG, Urine Bilirubin NEG, Urine Urobilinogen 0.2, Ur Leukocyte Esterase NEG, Ur Microscopic SEDIMENT EXAMINED, Urine RBC RARE, Urine WBC RARE, Ur Epithelial Cells MOD H, Urine Bacteria MOD H, Urine Mucus MOD H, Urine Hemoglobin NEG, Urine Glucose NEG 12/15/16 1207: Anion Gap 16, Estimated GFR > 60, BUN/Creatinine Ratio 10.0, Glucose 121 H, Calcium 9.5, Total Bilirubin 0.4, AST 26, ALT 60 H, Alkaline Phosphatase 103, Total Protein 8.4 H, Albumin 5.1 H, Globulin 3.3, Albumin/Globulin Ratio 1.5, Lipase 149, Total Beta HCG NEGATIVE, CBC w Diff NO MAN DIFF REQ, RBC 5.36, MCV 89.9, MCH 30.0, RDW 13.3, MPV 8.6, Gran % 82.3 H, Lymphocytes % 15.5 L, Monocytes % 1.8, Eosinophils % 0.2, Basophils % 0.2, Absolute Granulocytes 11.0 H, Absolute Lymphocytes 2.1, Absolute Monocytes 0.2, Absolute Eosinophils 0, Absolute Basophils 0, PUBS MCHC 33.4 Initial ED EKG: none Comments: Shavon has had 3 abdominal CAT scans and 2 ultrasounds since May of last year. I do not feel repeat imaging would be useful at this time, patient agrees. 1610 patient feels better and in fact is feeling hungry. I feel she is stable for outpatient management. Her GI doctor. Departure Departure Disposition: HOME OR SELF CARE Condition: Stable Clinical Impression Primary Impression: Abdominal pain Qualifiers: Abdominal location: epigastric Qualified Code: R10.13 - Epigastric pain Referrals: DEVENDRA ROBBINS APRN (PCP/Family) Additional Instructions: Continue your current medications. Liquid diet and advance as tolerated. Follow-up with your GI specialist this week. Return if any concerns or sudden worsening. Departure Forms: Customer Survey General Discharge Information
[2016-12-15 12:29] LABS: ABSOLUTE BASOPHIL COUNT 0 /CUMM (0.0-0.2); ABSOLUTE EOSINOPHIL COUNT 0 /CUMM (0.0-0.7); ABSOLUTE LYMPH COUNT 2.1 /CUMM (1.2-3.4); ABSOLUTE MONOCYTE COUNT 0.2 /CUMM (0.10-0.60); BASOPHIL % 0.2 % (0.0-2.0); EOSINOPHIL % 0.2 % (0-5); GRANULOCYTE % 82.3 % (42.2-75.2); HEMATOCRIT 48.2 % (37-47); MEAN CORPUSCULAR HGB CONC 33.4 G/DL (33.0-37.0); MEAN CORPUSCULAR VOLUME 89.9 FL (81.0-99.0); MEAN PLATELET VOLUME 8.6 FL (7.4-10.4); PLATELET COUNT 297 /CUMM (130-400); RBC DISTRIBUTION WIDTH 13.3 % (11.5-14.5); RED BLOOD CELL CT 5.36 /CUMM (4.20-5.40); WHITE BLOOD CELL COUNT 13.4 /CUMM (4.8-10.8)
[2016-12-15 15:14] VITALS: BP 96/50
== END 2016-12-15 16:18 ==
LOC: ERH 11:04
PROVIDERS: Emergency Medicine
DX: R10.13 Epigastric pain (principal)
CPT/HCPCS: 81001; 96361; 96374; 96375; J1885; J2550; J2765

== ENCOUNTER 2018-03-25 16:58 | Emergency (ER) | payer OTHER ==
[~2018-03-25] VITALS: Ht 157.5 cm; Wt 88.0 kg
--- NOTE | 2018-03-25 17:33 | ED GI/GU/ABDOMINAL COMPLAINT ---
History of Present Illness General Chief Complaint: Female Urogenital Problems Stated Complaint: 6 WEEKS PREG, BLEEDING Source: patient Exam Limitations: no limitations Vital Signs & Intake/Output Vital Signs & Intake/Output Vital Signs Date Time Temp Pulse Resp B/P B/P Pulse O2 O2 Flow FiO2 Mean Ox Delivery Rate 03/25 1832 105 18 131/89 99 Room Air 03/25 1704 97.3 110 18 143/92 98 Room Air Room Air Allergies Coded Allergies: azithromycin (From ZITHROMAX) (DIARRHEA 05/23/16) Uncoded Allergies: ETOH (Intermediate, VOMITTING, DIARRHEA 05/23/16) Reconcile Medications Clobazam (ONFI) 2.5 MG/ML ORAL.SUSP 2.5 ML PO Q12H EPILEPSY (Reported) Dicyclomine Hydrochloride (Bentyl) 10 MG CAPSULE 1-2 CAP PO TID abd spasms Omeprazole 20 MG TABLET.DR 1 TAB PO DAILY reflux Ondansetron (Zofran Odt) 4 MG TAB.RAPDIS 1 TAB SL TID nausea Triage Note: PT TO ED WITH C/O VAGINAL BLEEDING SINCE YESTERDAY, "JUST A LITTLE RED SPOT, IT WAS SOCIAL [employer] MSW DR OLIVEROS, HAD US AND EVERYTHING OK". "PUT ON BEDREST UNTIL THURSDAY, ONLY WENT TO GET MILK, CAME HOME AND HAD BRIGHT BLEEDING". Triage Nurses Notes Reviewed? yes ? y Is pt currently ? No Onset: Gradual Duration: day(s): Timing: recent history Quality/Severity: moderate HPI: 28yo female 6 weeks presents to ED complaining of vaginal bleeding x 2 days. Patient states yesterday she began spotting and went to her SOCIAL WORK MSW's office, Dr. Shukla. She had a transvaginal US performed which showed intrauterine sac. Patient discharged on bed rest. Patient states that today she went out to get milk and when she got home she noticed increased right red vaginal bleeding. She states that it was about 3 tablespoons. Since then the patient reports only vaginal spotting. She has had no abdominal pain or cramping. (Meggan TAVERAS,Shira Looney) Past History Travel History Traveled to [place] past 21 day No Medical History Any Pertinent Medical History? 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 No (Shira Garrett) Review of Systems Review of Systems Constitutional: Reports: no symptoms. EENTM: Reports: no symptoms. Respiratory: Reports: no symptoms. Cardiovascular: Reports: no symptoms. GI: Reports: see HPI. Genitourinary: Reports: see HPI. Musculoskeletal: Reports: no symptoms. Skin: Reports: no symptoms. Neurological/Psychological: Reports: no symptoms. Hematologic/Endocrine: Reports: no symptoms. Immunologic/Allergic: Reports: no symptoms. All Other Systems: Reviewed and Negative (Shira Garrett) Physical Exam Physical Exam General Appearance: well developed/nourished, no apparent distress, alert, awake Head: atraumatic, normal appearance Eyes: Bilateral: normal appearance. Ears, Nose, Throat, Mouth: hearing grossly normal Neck: normal inspection, supple, full range of motion Respiratory: normal breath sounds, no respiratory distress, lungs clear Cardiovascular: regular rate/rhythm Gastrointestinal: normal bowel sounds, soft, non-tender, no organomegaly Back: normal inspection, normal range of motion Extremities: normal range of motion Neurologic/Psych: awake, alert, oriented x 3 Skin: intact, normal color, warm/dry Core Measures ACS in differential dx? No Sepsis Present: No Sepsis Focused Exam Completed? No (Shira Garrett) Progress Differential Diagnosis: intrauterine , ovarian cyst, threatened AB, UTI /pyelo Plan of Care: Orders Procedure Date/time Status URINE 03/25 1710 Active URINALYSIS 03/25 1710 Active HUMAN BETA HCG TITRE 03/25 1710 Complete COMPREHENSIVE METABOLIC PANEL 03/25 1710 Complete CBC WITHOUT DIFFERENTIAL 03/25 1710 Complete TYPE & SCREEN (NOT X-MATCH) 03/25 1710 Complete Laboratory Tests 03/25/18 1823: Urine Color Pending, Urine Clarity Pending, Urine pH Pending, Ur Specific [place] Pending, Urine Protein Pending, Urine Ketones Pending, Urine Nitrite Pending, Urine Bilirubin Pending, Urine Urobilinogen Pending, Ur Leukocyte Esterase Pending, Ur Microscopic SEDIMENT EXAMINED, Urine RBC Pending, Urine Hemoglobin Pending, Urine Glucose Pending, Urine Test POSITIVE 03/25/18 1716: Anion Gap 11, Estimated GFR > 60, BUN/Creatinine Ratio 8.6, Glucose 98, Calcium 9.3, Total Bilirubin 0.4, AST 23, ALT 45, Alkaline Phosphatase 89, Total Protein 7.5, Albumin 4.6, Globulin 2.9, Albumin/Globulin Ratio 1.6, Beta HCG, Quant 49458.0, CBC w Diff NO MAN DIFF REQ, RBC 4.53, MCV 90.8, MCH 30.8, MCHC 33.9, RDW 13.9, MPV 8.0, Gran % 70.0, Lymphocytes % 24.6, Monocytes % 4.8, Eosinophils % 0.3, Basophils % 0.3, Absolute Granulocytes 9.2 H, Absolute Lymphocytes 3.2, Absolute Monocytes 0.6, Absolute Eosinophils 0, Absolute Basophils 0 Patient had outpatient ultrasound yesterday, she showed me the image on her cell phone showing intrauterine sac. Patient had labs drawn today. She agrees with waiting for repeat transvaginal ultrasound tomorrow as her SOCIAL [employer] MSW did encourage vaginal and bedrest. Awaiting collection of urine sample. Upon being brought back to a room patient's labs are stable, UA is pending. Patient states that she called her SOCIAL WORK MSW who told her he would see her in his office. She states she needs to leave to be evaluated by her SOCIAL WORK MSW in the office. She left her phone number, I told her I would call her if her urine was abnormal and she would require antibiotics. The patient agrees with this plan. Discussed findings with Dr. Amaral who agrees with this plan. Patient is in no acute distress, nontoxic appearing, no tenderness on abdominal exam. UA does not show evidence for UTI. Initial ED EKG: none (Meggan TAVERAS,Shira Looney) Departure Departure Disposition: HOME OR SELF CARE Condition: Stable Clinical Impression Primary Impression: Vaginal bleeding affecting early Referrals: Patient Has No Primary Care Dr (PCP/Family) Additional Instructions: Follow-up with SOCIAL WORK MSW when you leave here as discussed. Inform them that your hormone level was 10,339. You will need to get this level checked in 2 days. Return here with worsening symptoms or concerns. Please note that there might be incidental findings in your evaluation that are unrelated to the current emergency department visit. Please notify your primary care doctor about this emergency department visit in order to obtain and review all of the testing performed so that these incidental findings can be monitored as needed. If you had an x-ray performed, please understand that some fractures may not be seen on the initial set of x-rays. If your symptoms persist you might need a repeat set of x-rays to check for such a fracture. If you had a laceration evaluated, please understand that foreign bodies such as glass or wood may not be visible to the naked eye or on plain x-rays. If the wound becomes red, swollen, increasingly more painful or if there is any drainage from the wound, please have it reevaluated by a physician for the possibility of a retained foreign body. If you're unable to follow up as outlined in the discharge instructions please return to the emergency department. Thank you for choosing the [facility] Emergency Department for your care. It was a pleasure to serve you today. Departure Forms: Customer Survey General Discharge Information (Meggan TAVERAS,Shira Looney) PA/OBSTETRICS GYNECOLOGY MD Co-Sign Statement Statement: ED Attending supervision documentation- I saw and evaluated the patient. I have also reviewed all the pertinent lab results and diagnostic results. I agree with the findings and the plan of care as documented in the PA's/OBSTETRICS GYNECOLOGY MD's documentation. x I have reviewed the ED Record and agree with the PA's/OBSTETRICS GYNECOLOGY MD's documentation. [] Additions or exceptions (if any) to the PAs/OBSTETRICS GYNECOLOGY MD's note and plan are summarized below: [] (Munir MOULTON,Kristian)
[2018-03-25 17:52] LABS: ABSOLUTE BASOPHIL COUNT 0 /CUMM (0.0-0.2); ABSOLUTE EOSINOPHIL COUNT 0 /CUMM (0.0-0.7); ABSOLUTE GRANULOCYTE CT 9.2 /CUMM (1.4-6.5); ABSOLUTE LYMPH COUNT 3.2 /CUMM (1.2-3.4); ABSOLUTE MONOCYTE COUNT 0.6 /CUMM (0.10-0.60); BASOPHIL % 0.3 % (0.0-2.0); EOSINOPHIL % 0.3 % (0-5); HEMATOCRIT 41.2 % (37-47); MEAN CORPUSCULAR HGB 30.8 PG (27.0-31.0); MEAN CORPUSCULAR HGB CONC 33.9 G/DL (33.0-37.0); MEAN CORPUSCULAR VOLUME 90.8 FL (81.0-99.0); PLATELET COUNT 299 /CUMM (130-400); RBC DISTRIBUTION WIDTH 13.9 % (11.5-14.5); RED BLOOD CELL CT 4.53 /CUMM (4.20-5.40); WHITE BLOOD CELL COUNT 13.1 /CUMM (4.8-10.8)
[2018-03-25 18:32] VITALS: BP 131/89
== END 2018-03-25 18:40 ==
LOC: ERH 16:58
PROVIDERS: Physician Assistant
DX: O20.9 Hemorrhage in early pregnancy, unspecified (principal); O99.331 Smoking (tobacco) complicating pregnancy, first trimester; F17.210 Nicotine dependence, cigarettes, uncomplicated; Z3A.01 Less than 8 weeks gestation of pregnancy
CPT/HCPCS: 36415; 81001; 81025